=== PATIENT | male | born 1970 | race African-American/Black ===

== ENCOUNTER 2024-07-18 17:28 | Emergency (ER) | payer OTHER ==
[~2024-07-18] VITALS: Ht 188 cm; Wt 127.0 kg
[2024-07-18 19:27] LABS: APPEARANCE,URINE CLEAR (CLEAR); BILIRUBIN,URINE NEGATIVE (NEGATIVE); BLOOD, URINE NEGATIVE Ery/uL (NEGATIVE); COLOR,URINE YELLOW (YELLOW); KETONES,URINE NEGATIVE (NEGATIVE); NITRITE, URINE NEGATIVE (NEGATIVE); PROTEIN,URINE 1+ mg/dl (NEGATIVE); UGLUCOSE NEGATIVE (NEGATIVE)
[2024-07-18 19:36] LABS: ADD URINE CULTURE YES; BACTERIA,URINE Few /HPF (None Seen); MUCUS,URINE Few /LPF (None Seen); RBC,URINE 0-2 /HPF (0-2); SQUAMOUS EPITHELIAL CELL,UR Rare /HPF (None Seen)
[2024-07-18 19:37] LABS: LEUKOCYTE ESTERASE ,URINE NEGATIVE (NEGATIVE)
[2024-07-18] MEDS ORDERED: DOXY100T2 PO (19:37)
[2024-07-18] MEDS ORDERED: LIDOCAINE /MPF 1% VIAL 5 ML VIAL ONE (19:43)
[2024-07-18] MEDS ORDERED: CEFTRIAXONE 500 MG VIAL ONE (19:43)
[2024-07-18] MEDS: CEFTRIAXONE 500 MG VIAL IM ONE (19:49)
[2024-07-18 23:06] VITALS: BP 138/74; TEMP 99.8; O2SAT 99
== END 2024-07-18 23:07 | disposition home or self-care (01) ==
LOC: ER 17:28
DX: R39.15 Urgency of urination (principal); R35.0 Frequency of micturition; R05.9 Cough, unspecified
CPT/HCPCS: 99283; 96372; 87086; 81001; 87491; 87591; J0696; J3490